=== PATIENT | female | born 1990 | race Caucasian/White ===

== ENCOUNTER 2017-10-19 22:44 | Observation (INO) | payer OTHER ==
[2017-10-19 23:00] VITALS: BMI 19.8
[2017-10-19] MEDS ORDERED: ZOFRAN 4 MG/2 ML IVP STA (23:10)
[2017-10-19] MEDS ORDERED: SODIUM CHLORIDE 1,000 ML IV STA (23:10)
--- NOTE | 2017-10-20 00:28 | CT ---
EXAM: CT abdomen and pelvis without contrast. HISTORY: Vomiting. PROCEDURE: Contiguous axial CT images of the abdomen and pelvis without contrast with coronal and sa gittal reformats. FINDINGS: The liver, gallbladder, pancreas, spleen, adrenal glands and kidneys are normal in appearan ce. The abdominal aorta is normal in appearance. The visualized loops of bowel and appendix are edgardo l in appearance. No free fluid or free air in the abdomen or pelvis. The bladder is decompressed whi ch limits the evaluation. The uterus is unremarkable. The bones and soft tissues are unremarkable. Impression: Negative CT of the abdomen and pelvis.
[2017-10-20] MEDS ORDERED: PHENERGAN 25 MG/ML VIAL 25 MG in SODIUM CHLORIDE 50 ML IV STA (00:52)
[2017-10-20] MEDS ORDERED: SODIUM CHLORIDE 1,000 ML IV STA (00:52)
[2017-10-20] MEDS ORDERED: PHENERGAN 25 MG/ML VIAL ONE (00:55)
[2017-10-20] MEDS ORDERED: ZOFRAN 4 MG/2 ML IVP STA (03:25)
--- NOTE | 2017-10-20 05:28 | ED.PDOC ---
General ED Provider: Dr. ASHVIN AREVALO-ER Chief Complaint: Nausea/Vomiting Stated Complaint: im sick Time Seen by Physician: 22:50 Mode of Arrival: Wheelchair Information Source: Patient, Family Exam Limitations: No limitations Nursing and Triage Documentation Reviewed and Agree: Yes Reviewed sepsis parameters & appropriate labs ordered?: Yes System Inflammatory Response Syndrome: Not Applicable Sepsis Protocol: For patient's 13 years and over: Temp is 96.8 and below OR 101 and greater Pulse >90 BPM Resp >20/minute Acutely Altered Mental Status Are patient's symptoms suggestive of a new infection, such as: -Pneumonia -Skin, Soft Tissue -Endocarditis -UTI -Bone, Joint Infection -Implantable Device -Acute Abdominal Infection -Wound Infection -Meningitis -Blood Stream Catheter Infection -Unknown GI Complaint Exam - Vomiting/Diarrhea Complaint/Exam Onset/Duration: a few hours Symptoms Are: Still present Initial Severity: Mild Current Severity: Mild Character of Vomiting: Reports: Non-bilious Aggravating: Reports: Food Alleviating: Reports: None Associated Signs and Symptoms: Reports: Cramping Menses: Regular Recent Positive Test: No Non-GI Risk Factors: Reports: None Surgical Obstruction Risk Factors: Reports: None Abdominal Findings: Present: None Kussmaul Respirations Present: No Differential Diagnoses: Cholecystitis, Cholelithiasis, Dehydration, Viral Gastroenteritis, Bacterial Gastroenteritis, UTI Review of Systems - Review Of Systems Constitutional: Reports: No symptoms Eyes: Reports: No symptoms Ears, Nose, Mouth, Throat: Reports: No symptoms Respiratory: Reports: No symptoms Cardiac: Reports: No symptoms GI: Reports: Abdominal pain, Nausea, Vomiting : Reports: No symptoms Musculoskeletal: Reports: No symptoms Skin: Reports: No symptoms Neurological: Reports: No symptoms Endocrine: Reports: No symptoms Hematologic/Lymphatic: Reports: No symptoms All Other Systems: Reviewed and Negative Past Medical History - Past Medical History Previously Healthy: Yes Endocrine: Reports: Unknown Cardiovascular: Reports: Unknown Respiratory: Reports: Unknown Hematological: Reports: Unknown Gastrointestinal: Reports: Unknown Genitourinary: Reports: Unknown Neuro/Psych: Reports: Unknown Musculoskeletal: Reports: Unknown Cancer: Reports: Unknown Last Menstrual Period: 4 WEEKS AGO - Surgical History General Surgical History: Reports: Unknown - Family History Family History: Reports: Unknown - Social History Smoking Status: Never smoker Hx Substance Use: No Alcohol Screening: None - Immunizations Tetanus Shot up to Date: No Physical Exam - Physical Exam Appearance: Well-appearing, No pain distress, Well-nourished Eyes: DAVIDSON, EOMI, Conjunctiva clear ENT: Ears normal Neck: Supple Respiratory: Airway patent, Breath sounds clear, Breath sounds equal, Respirations nonlabored Cardiovascular: RRR, Pulses normal, No rub, No murmur GI/: Soft, Nontender, No masses, Bowel sounds normal, No Organomegaly Musculoskeletal: Normal strength, ROM intact, No edema, No calf tenderness Skin: Warm, Dry, Normal color Neurological: Sensation intact, Motor intact, Reflexes intact, Cranial nerves intact, Alert, Oriented Psychiatric: Affect appropriate, Mood appropriate Interpretation - Radiology Interpretation Radiology Interpretation By: Radiologist Radiology Results: Negative Exam Interpreted: CT Scan Re-Evaluation - Re-Evaluation Time of Re-Evaluation: 05:57 Status: Unchanged Vital Signs Stable: Yes Pain Level: 2 Appearance: NAD Lungs: Clear Skin: Warm and Dry Neuro: Alert and Oriented X3 CV: RRR Physician Notification - Case Discussed Physician Notified: dr england Time of Notification: 05:58 Critical Care Note - Critical Care Note Total Time (mins): 0 Course - Course Hematology/Chemistry: 10/19/17 23:20 10/19/17 23:20 Orders, Labs, Meds: Lab Review 10/19/17 10/19/17 10/19/17 23:20 23:20 23:20 WBC 18.29 H RBC 4.76 Hgb 14.3 Hct 41.2 MCV 86.6 MCH 30.0 MCHC 34.7 RDW Coeff of Isaias 12.2 Plt Count 300 Immature Gran % (Auto) 0.4 Neut % (Auto) 86.7 Lymph % (Auto) 8.[address] [place] % (Auto) 3.7 Eos % (Auto) 0.4 Baso % (Auto) 0.3 Immature Gran # (Auto) 0.1 Neut # (Auto) 15.9 H Lymph # (Auto) 1.6 [facility] # (Auto) 0.7 Eos # (Auto) 0.1 Baso # (Auto) 0.1 Sodium 138 Potassium 3.8 Chloride 106 Carbon Dioxide 19 L Anion Gap 16.8 BUN 17 Creatinine 0.73 Estimated GFR (MDRD) 96.00 BUN/Creatinine Ratio 23.28 Glucose 138 H Calcium 9.1 Total Bilirubin 0.8 AST 11 L ALT 10 L Alkaline Phosphatase 52 Total Protein 7.0 Albumin 3.7 Globulin 3.3 Albumin/Globulin Ratio 1.12 Amylase 55 Lipase 52 Urine Color Urine Clarity Urine pH Ur Specific [place] Urine Protein Urine Glucose (UA) Urine Ketones Urine Blood Urine Nitrite Urine Bilirubin Urine Urobilinogen Ur Leukocyte Esterase Urine Microscopic RBC Urine Microscopic WBC Ur Squamous Epith Cells Urine Bacteria Urine Mucus Urine Test Influ A Molecular Assay Negative by naat Influ B Molecular Assay Negative by naat 10/19/17 10/19/17 23:38 23:38 WBC RBC Hgb Hct MCV MCH MCHC RDW Coeff of Isaias Plt Count Immature Gran % (Auto) Neut % (Auto) Lymph % (Auto) [facility] % (Auto) Eos % (Auto) Baso % (Auto) Immature Gran # (Auto) Neut # (Auto) Lymph # (Auto) [place] # (Auto) Eos # (Auto) Baso # (Auto) Sodium Potassium Chloride Carbon Dioxide Anion Gap BUN Creatinine Estimated GFR (MDRD) BUN/Creatinine Ratio Glucose Calcium Total Bilirubin AST ALT Alkaline Phosphatase Total Protein Albumin Globulin Albumin/Globulin Ratio Amylase Lipase Urine Color Yellow Urine Clarity Clear Urine pH 5.5 Ur Specific [place] >=1.030 Urine Protein Negative Urine Glucose (UA) Negative Urine Ketones Negative Urine Blood 1+ Urine Nitrite Negative Urine Bilirubin Negative Urine Urobilinogen 0.2 Ur Leukocyte Esterase Negative Urine Microscopic RBC 2-5 Urine Microscopic WBC 0-2 Ur Squamous Epith Cells 2-5 Urine Bacteria 1+ Urine Mucus 1+ Urine Test Negative Influ A Molecular Assay Influ B Molecular Assay Orders Category Date Time Status IV [ED IV/MEDIPORT/POWERPORT] .ONCE EMERGENCY 10/19/17 23:10 Active AMYLASE Stat LAB 10/19/17 23:20 Completed CBC W/ AUTO DIFF Stat LAB 10/19/17 23:20 Completed COMPREHENSIVE METABOLIC PANEL Stat LAB 10/19/17 23:20 Completed FLU A/B MOLECULAR Stat LAB 10/19/17 23:20 Completed LIPASE Stat LAB 10/19/17 23:20 Completed MOLECULAR GROUP A STREP Stat LAB 10/19/17 23:20 Completed URINALYSIS C & S IF INDICATED Stat LAB 10/19/17 23:38 Completed URINE CULTURE Stat LAB 10/19/17 23:38 Received URINE Stat LAB 10/19/17 23:38 Completed 0.9 % Sodium Chloride [Saline Flush] MEDS 10/19/17 23:10 Ordered 1 syr IVF PRN PRN Ondansetron HCl/Pf [Zofran 4 mg/2 ml] MEDS 10/19/17 23:10 Discontinued 4 mg IVP ONCE STA Ondansetron HCl/Pf [Zofran 4 mg/2 ml] MEDS 10/20/17 03:25 Discontinued 4 mg IVP ONCE STA Promethazine HCl [Phenergan 25 mg/ml Vial] MEDS 10/20/17 00:55 Discontinued 25 mg .ROUTE .STK-MED ONE Promethazine HCl [Phenergan 25 mg/ml Vial] 25 mg MEDS 10/20/17 00:52 Discontinued 0.9 % Sodium Chloride [Sodium Chloride] 50 ml IV ONCE Sodium Chloride 0.9% [Sodium Chloride] 1,000 ml MEDS 10/20/17 00:52 Discontinued IV 250 mls/hr Sodium Chloride 0.9% [Sodium Chloride] 1,000 ml MEDS 10/19/17 23:[address] ABDOMEN/PELVIS WO CONTRAST Stat RADS 10/19/17 23:10 Completed Medications Generic Name Dose Route Start Last Admin Trade Name Freq PRN Reason Stop Dose Admin Sodium Chloride 1 syr 10/19/17 23:10 10/20/17 03:29 Saline Flush IVF 1 syr PRN PRN Administration To flush IV Discontinued Medications Generic Name Dose Route Start Last Admin Trade Name Freq PRN Reason Stop Dose Admin Sodium Chloride 1,000 mls @ 1,000 mls/hr 10/19/17 23:10 10/19/17 23:30 Sodium Chloride IV 10/20/17 00:09 1,000 mls/hr BOLUS STA Administration Promethazine HCl 25 mg/ Sodium 51 mls @ 75 mls/hr 10/20/17 00:52 10/20/17 01: 02 Chloride IV 10/20/17 01:32 75 mls/hr ONCE STA Administration Sodium Chloride 1,000 mls @ 250 mls/hr 10/20/17 00:52 10/20/17 00:55 Sodium Chloride IV 10/20/17 04:51 250 mls/hr .Q4H STA Administration Ondansetron HCl 4 mg 10/19/17 23:10 10/19/17 23:22 Zofran 4 Mg/2 Ml IVP 10/19/17 23:11 4 mg ONCE STA Administration Ondansetron HCl 4 mg 10/20/17 03:25 10/20/17 03:29 Zofran 4 Mg/2 Ml IVP 10/20/17 03:26 4 mg ONCE STA Administration Vital Signs: Temp Pulse Resp BP Pulse Ox 10/19/17 22:46 99.4 F 80 20 128/83 98 Departure - Departure Time of Disposition: 05:58 Disposition: PLACED OBSERVATION Discharge Problem: Nausea, Vomiting Instructions: Acute Nausea and Vomiting (ED) Condition: Good Pt referred to PMD for follow-up: No IPMP verified?: No Allergies/Adverse Reactions: Allergies No Known Drug Allergies Adverse Reaction (Verified 10/19/17 22:57) Home Medications: Ambulatory Orders 1 [No Reported Medications] 10/19/17 Disposition Discussed With: Patient, Family
[2017-10-20] MEDS ORDERED: ZOFRAN 4 MG/2 ML ONE (05:59)
[2017-10-20] MEDS ORDERED: D5%-NS-KCL 20 MEQ/L IV SOL 1,000 ML IV SCH (06:00)
[2017-10-20] MEDS ORDERED: ZOFRAN 4 MG/2 ML IVP PRN (06:01)
[2017-10-20] MEDS ORDERED: PHENERGAN 25 MG/ML VIAL 25 MG in SODIUM CHLORIDE 50 ML IV PRN (06:02)
--- NOTE | 2017-10-20 07:54 | PCM ---
- Chief Complaint Chief Complaint: Nausea and Vomiting - History of Present Illness History of Present Illness: Typically healthy 27 yo WF went to ER last night around 9-9:30 with 6 bouts of emesis and abdominal cramping. Diarrhea x 1. I was called this am around 6 and patient seen at 7:30. She was resting comfortably in hospital bed able to fully converse, aaox3. She went to local [employer] restaurant yesterday and ate Chicken, daniel chips and rice for lunch. No abnl food noted, no abnl taste, didn't look weird. Nobody else ate her food. No other sick contacts, no recent sick contacts. Works as chief accountant, , sexually active with , not on any meds, no control, not preventing /not trying for . No obvious source of infection but food is on the differential. LMP 09/23/17, test negative in ER. She has no major medical problems. Within an hour of meal yesterday she felt weird, nauseated and just not right. After work yesterday asked what she wanted for dinner and she felt worse. Around 7-8 pm symptoms started and worsened and she started to have emesis. NO previous history of GI issues. She had diarrhea x 1, watery. NO recent abx. Came in to ER with persistent N/V 6 bouts emesis quickly and then diarrhea x 1. Abdomen is not painful, no body aches, no fever, no other symptoms. In ER labs were collected. As noted negative, urine negative, amylase and lipase negative. CMP was normal. CBC showed elevated WBC at 18 but this may have been from demargination from the emesis and may be situational. The patient case was discussed with Dr. Brown, I reviewed his note as well. We talked about ddx to include food borne illness, viral/bacterial gastroenteritis , UTI, dehydration and GB diseases cholelithiasis, cholecystitis and biliary dyskinesia. No previous issues, healthy female no underlying medical problesm. ROS negative except for N/V moderate abd cramping before emesis and diarrhea. LMP up to date 09/23/17. NO vaginal discharge, no bleeding. CT abd/pelvis w/o contrast negative. Flu was negative. Creatinine was fine/normal. Electrolytes are normal/fine. No blood in diarrhea. She is currently resting comfortably. She noted this am that she feels better now than she has all night. She has no pain now. Nausea is mild. Has phenergan and zofran IV q 4 hours pRN. Discussed we will have her start with ice chips and advance to liquids. Reassess this afternoon to see how she is doing and consider home when feeling better. Last zofran 3 am. Afebrile, no other medications have been given. Pain currently 0/10. Nausea is mild and controlled. She is tired. Laboratory Last Values WBC 18.29 K/ul (4.6-10.2) H 10/19/17 23:20 RBC 4.76 10^6/ul (4.20-5.40) 10/19/17 23:20 Hgb 14.3 g/dl (12.0-16.0) 10/19/17 23:20 Hct 41.2 % (37.0-47.0) 10/19/17 23:20 MCV 86.6 fl (81.0-99.0) 10/19/17 23:20 MCH 30.0 pg (27.0-31.0) 10/19/17 23:20 MCHC 34.7 (31.8-35.4) 10/19/17 23:20 RDW Coeff of Isaias 12.2 % (11.6-14.8) 10/19/17 23:20 Plt Count 300 10^3/uL (140-440) 10/19/17 23:20 Immature Gran % (Auto) 0.4 % (0.0-5.0) 10/19/17 23:20 Neut % (Auto) 86.7 10/19/17 23:20 Lymph % (Auto) 8.5 (10.0-50.0) L 10/19/17 23:20 Shackelford % (Auto) 3.7 (0-10) 10/19/17 23:20 Eos % (Auto) 0.4 % (0.0-7.0) 10/19/17 23:20 Baso % (Auto) 0.3 % (0.0-3.0) 10/19/17 23:20 Immature Gran # (Auto) 0.1 (0.0-1.0) 10/19/17 23:20 Neut # (Auto) 15.9 K/ul (2.0-6.9) H 10/19/17 23:20 Lymph # (Auto) 1.6 K/uL (0.60-3.4) 10/19/17 23:20 Shackelford # (Auto) 0.7 K/uL (0.4-2.0) 10/19/17 23:20 Eos # (Auto) 0.1 K/ul (0.0-0.7) 10/19/17 23:20 Baso # (Auto) 0.1 K/uL (0-0.2) 10/19/17 23:20 Sodium 138 mmol/L (136-145) 10/19/17 23:20 Potassium 3.8 mmol/L (3.5-5.10) 10/19/17 23:20 Chloride 106 mmol/L (98-107) 10/19/17 23:20 Carbon Dioxide 19 mmol/L (21-32) L 10/19/17 23:20 Anion Gap 16.8 10/19/17 23:20 BUN 17 mg/dL (7-18) 10/19/17 23:20 Creatinine 0.73 mg/dL (0.60-1.30) 10/19/17 23:20 Estimated GFR (MDRD) 96.00 mL/min 10/19/17 23:20 BUN/Creatinine Ratio 23.28 10/19/17 23:20 Glucose 138 mg/dL (70-110) H 10/19/17 23:20 Calcium 9.1 mg/dL (8.2-10.2) 10/19/17 23:20 Total Bilirubin 0.8 mg/dL (0.00-1.20) 10/19/17 23:20 AST 11 U/L (15-37) L 10/19/17 23:20 ALT 10 U/L (12-78) L 10/19/17 23:20 Alkaline Phosphatase 52 U/L (42-98) 10/19/17 23:20 Total Protein 7.0 g/dL (6.4-8.2) 10/19/17 23:20 Albumin 3.7 g/dL (3.4-5.0) 10/19/17 23:20 Globulin 3.3 10/19/17 23:20 Albumin/Globulin Ratio 1.12 10/19/17 23:20 Amylase 55 U/L (25-115) 10/19/17 23:20 Lipase 52 U/L (8-78) 10/19/17 23:20 Urine Color Yellow (YELLOW) 10/19/17 23:38 Urine Clarity Clear (CLEAR) 10/19/17 23:38 Urine pH 5.5 (5-9) 10/19/17 23:38 Ur Specific [place] >=1.030 (1.005-1.030) 10/19/17 23:38 Urine Protein Negative (NEGATIVE) 10/19/17 23:38 Urine Glucose (UA) Negative (NEGATIVE) 10/19/17 23:38 Urine Ketones Negative (NEGATIVE) 10/19/17 23:38 Urine Blood 1+ (NEGATIVE) 10/19/17: Urine Nitrite Negative (NEGATIVE) 10/19/17 23: Urine Bilirubin Negative (NEGATIVE) 10/19/17:38 Urine Urobilinogen 0.2 (0.2) 10/19/17 23:38 Ur Leukocyte Esterase Negative (NEGATIVE) 10/19/17:38 Urine Microscopic RBC 2-5 (0-2) 10/19/17 23:38 Urine Microscopic WBC 0-2 (0-2) 10/19/17 23:38 Ur Squamous Epith Cells 2-5 (0-5) 10/19/17 23:38 Urine Bacteria 1+ (NOT PRESENT) 10/19/17 23:38 Urine Mucus 1+ (NOT PRESENT) 10/19/17 23:38 Urine Test Negative (NEGATIVE) 10/19/17 23:38 Influ A Molecular Assay Negative by naat (NEGATIVE) 10/19/17 23:20 Influ B Molecular Assay Negative by naat (NEGATIVE) 10/19/17 23:20 - Review of Systems Constitutional: sweats (during bouts of emesis), fatigue, loss of appetite. No : fever, chills, weakness Eyes: No: blurred vision, double-vision, discharge, itching, pain, redness, photophobia Ears: No: pain, bleeding, drainage, ringing, hearing loss, other Nose: No: bleeding, congestion, discharge, other Throat: No: pain, swelling, voice change, other Mouth: No: bleeding, pain, swelling, other Respiratory: No: cough, shortness of air, wheeze, hemoptysis, pain with breathing, other Cardiovascular: No: chest pain, left arm pain, diaphoresis, PND, orthopnea, edema, palpitations, syncope, other Gastrointestinal: abdominal pain, nausea, vomiting, diarrhea. No: other, melena , hematemesis, hematochezia, dysphagia, constipation Genitourinary: No: dysuria, hematuria, frequency, incontinence, flank pain, vaginal discharge, abnormal bleeding, pelvic pain, other Neurological: headache (only during emesis. ). No: dizziness, seizure, numbness , weakness, speech difficulty, problems with walking, tremor, fainting, other Musculoskeletal: No: pain, swelling in joints, other Skin: No: rash, pruritus, lacerations, wounds, bruising, other Immunology: No: hives, itching, frequent infections, difficulty healing, other Hematology: No: easy bruising, easy bleeding, swollen glands, other Endocrine: No: weight changes, cold intolerance, heat intolerance, excessive thirst, excessive hunger, polyuria, other Psychiatric: No: depression, anxiety, sleeplessness, hopelessness, suicidal, hallucinations, other Habits: No: tobacco use, substance use, alcohol use, other - Past Medical History Past Medical History: OM as youth, s/p tubes. Otherwise healthy female. No meds. No known problems. - Past Surgical History Past Surgical History: PE tubes as youth. No other surgeries. - Allergies Allergies/Adverse Reactions: Allergies Allergy/AdvReac Type Severity Reaction Status Date / Time No Known Drug Allergies AdvReac Verified 10/19/17 22:57 - Medications Medications: Medications Generic Name Dose Route Start Last Admin Trade Name Freq PRN Reason Stop Dose Admin Potassium Chloride/Dextrose/Sod Cl 1,000 mls @ 75 mls/hr 10/20/17 06:00 D5%-Ns-Kcl 20 Meq/L Iv Edwina IV .[id number] SENIA Promethazine HCl 25 mg/ Sodium 51 mls @ 75 mls/hr 10/20/17 06:02 Chloride IV Q4HR PRN Nausea / Vomiting Ondansetron HCl 4 mg 10/20/17 06:01 Zofran 4 Mg/2 Ml IVP Q4HR PRN Nausea / Vomiting Sodium Chloride 1 syr 10/19/17 23:10 10/20/17 06:00 Saline Flush IVF 1 syr PRN PRN Administration To flush IV - Family History Past Family History: Mother/father living, healthy. Brother x 1 living health. . No family history of Breast cancer, no family history of cervical/ovarian /uterine cancers. NO family history of colon cancer. No sick contacts. - Social History Past Social History: Works in financial market. NO tobacco, minimal ETOH. Normal menstrual cycles. . - Vital Signs Temperature: 97.6 F Pulse Rate: 80 Respiratory Rate: 16 Blood Pressure: 128/83 O2 Sat by Pulse Oximetry: 99 - Body Composition Height: 5 ft 8 in Weight: 130 lb 11.746 oz Body Mass Index (BMI): 19.8 - Physical Examination HEENT: Constitutional: Appearance-No acute distress, Consistent with stated age. Lying in hospital bed, comfortable. Nurse Zina Present during entirety of history/examination. Orientation- Oriented x 3, alert Posture-Supine hospital bed. Build and Nutrition-Well developed and well nourished. BMI normal zone. General- Patient is pleasant and cooperative with the interview and exam. Integumentary: General-No rashes, ulcers or lesions. Palpation- Normal skin moisture/turgor. Skin is warm to touch, appropriate. Capillary refill is normal bilateral Upper and lower extremity. Head/Neck: Head- normocephalic and atraumatic. Neck- without visible/palpable lumps or pulsations. Palpation- No bony tenderness about head/neck along frontal, occipital, temporal, parietal, mastoid, jawline, zygoma, orbit or any other location.~ NO temporal artery tenderness. No TMJ tenderness. Neck Supple. Thyroid-No thyromegaly, no nodules Eye: Bilaterally PERRLA, EOMI. No discharge. Upper and lower eyelids are normal. Sclera/conjunctiva normal without discharge. Cornea is normal and clear. Lens is normal. Eyeball appears normal. No ciliary flushing, no conjunctival injection. ENMT: Pinna- normal without tenderness or erythema. External auditory canal Left- normal without erythema or discharge, no excessive cerumen. External auditory canal Right-normal without erythema or discharge, no excessive cerumen. TM left- Soriano/pearly, normal light reflex and anatomy scarring posterior inferior border. TM Right- Soriano/pearly, normal light reflex and anatomy scarring posterior inferior border. Hearing Assessment-normal to conversational speech. Nose and sinus- No sinus tenderness along frontal/ maxillary region. External appearance normal and midline. Nares- bilateral quiet airflow, no discharge. Nasal mucosa- No bleeding noted and no ulcerations observed. [place], moist. Turbinates non boggy. Lips- normal color, moist without cracks/lesions Oral Cavity/Palate- hard/soft palate intact without lesions, oral mucosa pink and moist. Dentition assessed and discussed appropriate oral care. Tongue normal midline. Oropharynx- no pharyngeal erythema, Uvula midline. No post nasal drip. No exudate. Salivary glands- Non tender to palpation CHEST/LUNG: Inspection- symmetric chest wall no pectus deformity. Normal effort , no distress, no use of accessory muscles. Palpation- nontender sternum, ribline. No abnormal pulsations. Auscultation- Breath sounds normal throughout all lung kohler. Normal tracheal sounds, Normal bronchial sounds overlying sternum, Bronchovessicular sounds normal between scapulae posteriorly, Normal vessicular breath sounds heard throughout periphery. Lungs are clear today. Adventitious sounds- No wheezes, rales, rhonchi. CARDIOVASCULAR: Carotid artery- normal, no bruits or abnormal pulsations. Jugular vein- no pulsations. Palpation/Percussion- Normal PMI, no palpable thrill Auscultation- Regular rate and rhythm. No murmur noted in sitting, supine positions. Extremities- no digital clubbing, cyanosis, edema, increased warmth. ABDOMEN: Inspection- normal and no visible pulsations. Normal contour. Auscultation- Bowel sounds hyperactive Palpation/Percussion- soft, mildly tender epigastric, no rebound tenderness, no rigidity (guarding), no jar tenderness, no masses, Power negative, No tenderness at Mcburney point. Rovsing negative. Liver-no hepatomegaly, Spleen no splenomegaly, Hernias- none. Rectal not examined. Peripheral Vascular: Upper extremity Left- Normal temperature with pink nailbeds and no ulcerations. Upper extremity Right- Normal temperature with pink nailbeds and no ulcerations. Lower extremity- Normal temperature with pink nailbeds and no ulcerations. DP pulses 2+ bilaterally. Pedal hair intact. Normal capillary refill. Edema- No edema. Musculoskeletal: Generalized-No generalized swelling or edema of extremities, no digital clubbing or cyanosis, neurovascularly intact all four extremities. Upper extremity- Symmetrical posture. No visible deformity. Normal sensation along medial and lateral upper extremity proximally and distally.~ NO tenderness overlying shoulder, lateral/medial epicondyle. Headend Technician 5/5 and strength 5/5 bilateral UE.~ Elbow palpated, no tenderness overlying olecranon.~ Normal supination, pronation to active/passive ROM and to resisted rotation. Bicep insertion/tricep insertion appear normal without obvious pathology. Rotator cuff evaluated and intact. Normal wrist ROM bilaterally. Normal hand movement, intrinsic muscles of hands normal. No tenderness to palpation of hands/wrists/ elbows. Lower extremity- Hip: Not tender to palpation, no pain, no swelling, edema or erythema of surrounding tissue, normal strength and tone. Normal appearing hip ROM bilaterally without pain. Knee: Knee ROM normal. No tenderness overlying trochanters, no tenderness about patella, quad tendon, patellar tendon. No tenderness at tibial tuberosity. Ankle: normal ROM not tender to palpation along medial/lateral malleolus. Foot: Normal movement of toes, no tenderness bilateral feet/toes. Normal foot type. Spine/Ribs- No deformities, masses or tenderness, no known fractures, normal strength, Normal ROM. Normal stability No tenderness along C/T/L spine. Normal appearing ROM about spine. Neurological: General- Moves all 4 extremities symmetrically. Symmetrical face and body posture. Cranial nerves- individually evaluated II-XII and intact. PERRLA, Normal EOMI, visual/special senses appear intact, Face is symmetrical and normal sensation/movement, normal tongue, normal strength/posture of neck musculature. Reflexes- intact with DTR 2+ patellar, Achilles, bicep, brachial, Strength- 5/5 bilateral UE and LE. Soft touch- intact bilateral UE and LE. Temperature sensation- intact bilateral UE and LE. Cerebellar testing-Rapid alternating movements intact. Heel kaiser intact. Able to walk normal gait, normal heel toe walking. Balance- Romberg intact. Normal Walking, heel toe walking, tip toe and heel walking normal. Neuropsych: Oriented- Person, place, time. (AAOx3), Mood/affect- normal and congruent. Able to articulate well. Speech-Normal speech, normal rate, normal tone, normal use of language, volume and coherence. Thought content- normal with ability to perform basic computations and apply abstract thought/reason. Associations- intact, no SI/HI, no hallucinations, delusions, obsessions. Judgment/insight- Appropriate. Memory-Recall intact, remote and recent memory intact. Knowledge- Age appropriate fund of knowledge, concentration and attention span normal. Lymphatic: Head/Neck- normal size and non tender to palpation. Axillary- normal size and non tender to palpation. Femoral and Inguinal- normal size and non tender to palpation. IV Right AC. - Lab/Tests/Diagnostic Imaging Lab/Tests/Diagnostic Imaging: CT Abd pelvis w/o: Negative. Labs as listed above. - Assessment (1) Nausea Status: Acute Code(s): R11.0 - NAUSEA SNOMED Code(s): 862359258 (2) Vomiting Status: Acute Code(s): R11.10 - VOMITING, UNSPECIFIED SNOMED Code(s): 314869625 (3) Diarrhea Status: Acute Code(s): R19.7 - DIARRHEA, UNSPECIFIED SNOMED Code(s): 80809122 (4) Hyperglycemia Status: Acute Code(s): R73.9 - HYPERGLYCEMIA, UNSPECIFIED SNOMED Code(s): 83910486 (5) Leukocytosis Status: Acute Code(s): D72.829 - ELEVATED WHITE BLOOD CELL COUNT, UNSPECIFIED SNOMED Code(s): 576871673 - Plan Plan: Nausea and Vomiting: Ddx discussed with patient today includes viral vs bacterial Gastroenteritis, food borne illness at this time. UTI is less likely with negative UA, urine was negative. Pancreatitis is less likely with normal chan/lipa. Hepatitis is less likely with normal AST/ALT. She does not appear to be majorly dehydrated, normal vitals, normal electrolytes. Persistent nausea and vomiting with 1 bout of diarrhea. C. Diff is on ddx with the elevated WBC and diarrhea. However she has not yet had 3 unformed stools in 24 hours. The patient is resting comfortably, antiemetics on board and working. Last dose 3 am. For now I would like to observe her here and see how she does with antiemetics. IF doing well by this pm, we may send home with instructions on diet. While in hospital we will have her clear liquid, advance as tolerated. She has no reason to be NPO. Tylenol/motrin PRN. She has no pain , no other pain meds will be needed. She is a very healthy 27 yr old female. No bloody diarrhea suggest less likely for (yersenia, campylobacter, salmonella , shigella, e. coli). I would like to check stool for PCR. We will complete this once she has a stool. - Phenergan/zofran PRN. - D5 1/2 NS 50ml/hour + 20meq KCL - Clear liquids, start with ice chips and advance as tolerated. - monitor for changes. Diarrhea: As noted suspect gastoenteritis but cannot r/o B. Cereus with rice or salmonella/shigella/E. Coli from food. Less likely hepatitis for reasons noted above. We will check Stool PCR to see cause of symptoms. Suspect gastroenteritis and when tolerating PO can be at home. She agreed with this plan. [place] [place]. Hyperglycemia: Fasting as no food/drink after noon. Glucose elevated ?stress response but >126. We will check A1C. -A1C ordered Leukocytosis: Suspect demargination from emesis. Infection is considered on ddx as well. Monitor. Would consider repeat in 48-72 hours. Does not meet SIRS criteria Pain: Toradol IV ordered. Afebrile, tylenol held for now. Admit Status: Observation. Activity: ad alice Diet: clear liquids start w/ ice and advance to liquids. Advance as tolerated. DVT Prophy: up ad alice.
[2017-10-20] MEDS ORDERED: TORADOL IVP PRN (08:16)
[2017-10-20 15:27] VITALS: BP 102/72; TEMP 99.9
--- NOTE | 2017-10-20 15:52 | PCM.DC ---
Final Diagnosis: All Active Problems Diarrhea (Acute) Hyperglycemia (Acute) Leukocytosis (Acute) Nausea (Acute) Vomiting (Acute) (1) Nausea Status: Resolved Code(s): R11.0 - NAUSEA SNOMED Code(s): 689526429 (2) Vomiting Status: Resolved Code(s): R11.10 - VOMITING, UNSPECIFIED SNOMED Code(s): 372968547 (3) Diarrhea Status: Acute Code(s): R19.7 - DIARRHEA, UNSPECIFIED SNOMED Code(s): 54483089 (4) Hyperglycemia Status: Acute Code(s): R73.9 - HYPERGLYCEMIA, UNSPECIFIED SNOMED Code(s): 48923769 (5) Leukocytosis Status: Acute Code(s): D72.829 - ELEVATED WHITE BLOOD CELL COUNT, UNSPECIFIED SNOMED Code(s): 265695410 Reason for Hospitalization: Intractable nausea and vomiting and diarrhea. Concern for food born illness. Prognosis at Discharge: Good. Nausea and emesis have resolved. None since admitted to observation. Fluid hydration completed, diarrhea has started as nausea and emesis have been controlled with medications. Condition at Discharge: Improved, good. Medications at Discharge: Ambulatory Orders Medication Instructions Recorded 1 [No Reported Medications] 10/19/17 Ambulatory Orders Medication Instructions Recorded Ondansetron [Zofran Odt] 4 mg PO Q8H 10 Days #20 tab.rapdis 10/20/17 Promethazine HCl [Phenergan Supp] 12.5 mg RC Q6H PRN 10 Days #5 10/20/17 supp.rect Promethazine HCl [Phenergan Tab] 25 mg PO Q6H PRN 10 Days #20 tablet 10/20/17 Lab/Diagnostics: Laboratory Last Values WBC 18.29 K/ul (4.6-10.2) H 10/19/17 23:20 RBC 4.76 10^6/ul (4.20-5.40) 10/19/17 23:20 Hgb 14.3 g/dl (12.0-16.0) 10/19/17 23:20 Hct 41.2 % (37.0-47.0) 10/19/17 23:20 MCV 86.6 fl (81.0-99.0) 10/19/17 23:20 MCH 30.0 pg (27.0-31.0) 10/19/17 23:20 MCHC 34.7 (31.8-35.4) 10/19/17 23:20 RDW Coeff of Isaias 12.2 % (11.6-14.8) 10/19/17 23:20 Plt Count 300 10^3/uL (140-440) 10/19/17 23:20 Immature Gran % (Auto) 0.4 % (0.0-5.0) 10/19/17 23:20 Neut % (Auto) 86.7 10/19/17 23:20 Lymph % (Auto) 8.5 (10.0-50.0) L 10/19/17 23:20 Parker % (Auto) 3.7 (0-10) 10/19/17 23:20 Eos % (Auto) 0.4 % (0.0-7.0) 10/19/17 23:20 Baso % (Auto) 0.3 % (0.0-3.0) 10/19/17 23:20 Immature Gran # (Auto) 0.1 (0.0-1.0) 10/19/17 23:20 Neut # (Auto) 15.9 K/ul (2.0-6.9) H 10/19/17 23:20 Lymph # (Auto) 1.6 K/uL (0.60-3.4) 10/19/17 23:20 Parker # (Auto) 0.7 K/uL (0.4-2.0) 10/19/17 23:20 Eos # (Auto) 0.1 K/ul (0.0-0.7) 10/19/17 23:20 Baso # (Auto) 0.1 K/uL (0-0.2) 10/19/17 23:20 Sodium 138 mmol/L (136-145) 10/19/17 23:20 Potassium 3.8 mmol/L (3.5-5.10) 10/19/17 23:20 Chloride 106 mmol/L (98-107) 10/19/17 23:20 Carbon Dioxide 19 mmol/L (21-32) L 10/19/17 23:20 Anion Gap 16.8 10/19/17 23:20 BUN 17 mg/dL (7-18) 10/19/17 23:20 Creatinine 0.73 mg/dL (0.60-1.30) 10/19/17 23:20 Estimated GFR (MDRD) 96.00 mL/min 10/19/17 23:20 BUN/Creatinine Ratio 23.28 10/19/17 23:20 Glucose 138 mg/dL (70-110) H 10/19/17 23:20 Hemoglobin A1c 5.1 (4.8-6.0) 10/19/17 23:19 Calcium 9.1 mg/dL (8.2-10.2) 10/19/17 23:20 Total Bilirubin 0.8 mg/dL (0.00-1.20) 10/19/17 23:20 AST 11 U/L (15-37) L 10/19/17 23:20 ALT 10 U/L (12-78) L 10/19/17 23:20 Alkaline Phosphatase 52 U/L (42-98) 10/19/17 23:20 Total Protein 7.0 g/dL (6.4-8.2) 10/19/17 23:20 Albumin 3.7 g/dL (3.4-5.0) 10/19/17 23:20 Globulin 3.3 10/19/17 23:20 Albumin/Globulin Ratio 1.12 10/19/17 23:20 Amylase 55 U/L (25-115) 10/19/17 23:20 Lipase 52 U/L (8-78) 10/19/17 23:20 Urine Color Yellow (YELLOW) 10/19/17 23:38 Urine Clarity Clear (CLEAR) 10/19/17 23:38 Urine pH 5.5 (5-9) 10/19/17 23:38 Ur Specific [place] >=1.030 (1.005-1.030) 10/19/17 23:38 Urine Protein Negative (NEGATIVE) 10/19/17 23:38 Urine Glucose (UA) Negative (NEGATIVE) 10/19/17 23:38 Urine Ketones Negative (NEGATIVE) 10/19/17 23:38 Urine Blood 1+ (NEGATIVE) 10/19/17 23:38 Urine Nitrite Negative (NEGATIVE) 10/19/17 23:38 Urine Bilirubin Negative (NEGATIVE) 10/19/17 23:38 Urine Urobilinogen 0.2 (0.2) 04/04/18 23:38 Ur Leukocyte Esterase Negative (NEGATIVE) 10/19/17 23:38 Urine Microscopic RBC 2-5 (0-2) 10/19/17 23:38 Urine Microscopic WBC 0-2 (0-2) 10/19/17 23:38 Ur Squamous Epith Cells 2-5 (0-5) 10/19/17 23:38 Urine Bacteria 1+ (NOT PRESENT) 10/19/17 23:38 Urine Mucus 1+ (NOT PRESENT) 10/19/17 23:38 Urine Test Negative (NEGATIVE) 10/19/17 23:38 Influ A Molecular Assay Negative by naat (NEGATIVE) 10/19/17 23:20 Influ B Molecular Assay Negative by naat (NEGATIVE) 10/19/17 23:20 Miscellaneous Test Sent to [facility] 10/20/17 11:00 Pending Labs: Gastrointestinal PCR study. Urine culture. Education Provided to Patient and Family: 1. Zofran ODT q 6 hours or Phenergan q 6 hours. She was given Rx for phenergan PO and phenergan Supp. This can cause sedation. Fluid hydration. 2. Gastroenteritis. Discussed case with patient/family today and feel that most likely dx is gastroenteritis. These usually run anywhere from 1-5 days depending on severity. Biggest risk factor is dehydration. Gatoraid is best rehydration solution. Encouraged any color but red. No bloody emesis/diarrhea by history. Mild cramping, mild abdominal pain. May consider avoiding dairy as able for ~ 1 week as GE can cause temporary lactose intolerance. Discussed to consider UA today. If no better in 1 week or if worsening recommend followup with me to evaluate this further. If concerned about dehydration can follow-up with me. Risks/benefits of current and new medications discussed with the patient/family today. The patient/family are aware if there any side effects they should stop meds and call or return to clinic. Appropriate F/U discussed. All questions answered to satisfactory state of patient/family. Should symptoms fail to improve or worsen discussed to call or return to clinic or go to ER. Education handout provided on any new Rx. 3. Repeat CBC in 1 week. 4. F/U w/ PCP in 1 week. 5. Diet advance as tolerated 6. Activity as tolerated. 7. Do not drive on phenergan. 8. Note for work for today and tomorrow. Return to work tuesday. Return to ER or call/walk in to my clinic. Follow-ups: 1. PCP in 1 week. 2. Return to Er if worsening. 3. Pending Labs; Gastrointestinal PCR, Urine culture. 4. Future Labs; CBC repeat in 1 week. Order Printed 5. Off Work 10/20 and 10/21 written Rx given. Disposition: HOME SELF-CARE Hospital Course: I saw patient this am around 7 am after admission to observation earlier this am. Leukocytosis noted, mildly elevated glucose noted, persistent N/V and Diarrhea noted and she was admitted to observation. She was given IV zofran which helped markedly. I checked on her x 2 throughout the day 12 and 3. She had abdominal pain earlier this am and I did allow a toradol injection. She tolerated this well. I changed her diet this am to be able to have liquids/ clear diet and she has tolerated this well today. She has consumed liquid foods , has had Uout in toilet and has had some diarrhea (2 bouts). She has no frequency, no hesitancy, no burning. Urine did have 1+ blood and small bacteria but no s/sx of UTI. She has remained afebrile throughout stay despite high 99. Abd pain is better (controlled), N/V (controlled) per her request. She was given option of staying overnight and stopping IV fluids to see how she was doing with 24 hour stay vs going home and she chose to go home. I believe that she has a gastroenteritis that is controllable with oral/supp meds. She has not had any more PRN antiemetics since ER. Her cmp looked good, testing was negative. CT abd/pelvis w/o contrast negative. CBC with leukocytosis that was possibly demargination from emesis. Glucose was mildly elevated, A1C was normal. She has no abdominal pain as of 4pm, has not had another round of toradol. Has not had any antiemetics since ER. She has not had any emesis since being in hospital. We talked about home meds. We will give zofran ODT. She can have phenergan in PO and Supp forms. I recommended using one or the other, do not use both. Fluid hydration is most important. Discussed avoidance of dairy over next 1 week. Hospital course was uncomplicated and she has improved since being observed in the hospital. Tolerating oral liquids. Tylenol/ibuprofen can be used as needed. F/U with PCP in 1 week. We talked about possibility of C. Diff. No recent abx, no nursing stay. However , this has increased in population. We will check PCR for infectious etiologies. Monitor for blood in stool. So far watery/brown and non bloody. Day of discharge exam as seen on H+P document. No abdominal pain as of 10/20/17 4 :16 PM. Pending: Urine Culture, Gastrointestinal PCR. Plan: 1. Discharge to home. 2. Zofran ODT 4mg q 8 hours prn 3. Phenergan 25mg PO q 6-8 hours pRN or 12.5mg supp q 6-8 hours prn 4. Fluid hydration: Water/gatoraid. Avoid red colors as able 5. Await F/U on Gastrointestinal PCR panel and urine culture. Will call w/ update if needed. 6. Good Hand washing. 7. Note for work for today and tomorrow 8. F/U with PCP in 1 week. 9. Return to ER or walk in to my clinic tomorrow if needed. 10. Avoid Dairy x 1 week. 11. Would avoid imodium if able. 12. Diet: Clear liquid diet, advance as tolerated. 13. Activity: Resume normal home activities.
== END 2017-10-20 17:20 | disposition home or self-care (01) ==
LOC: ED 22:44 → MEDSURG B 10-20 06:02
PROVIDERS: ADMIT Family Medicine; ATTEND Family Medicine
DX: R11.2 Nausea with vomiting, unspecified (principal); R19.7 Diarrhea, unspecified; R10.9 Unspecified abdominal pain; R73.9 Hyperglycemia, unspecified; D72.829 Elevated white blood cell count, unspecified
CPT/HCPCS: 36415; 80053; 81001; 81025; 82150; 83036; 83690; 85025; 87086; 87502; 87651; 96361; 96365; 96375; 96376; 99234; 99284

== ENCOUNTER 2017-10-26 11:11 | Outpatient (CLI) | payer OTHER | END 2017-10-26 11:12 | disposition home or self-care (01) | LOC: FCC-LAB 11:11 | PROVIDERS: ATTEND Family Medicine | DX: Z09 Encounter for follow-up examination after completed treatment for conditions other than malignant neoplasm (principal); R19.7 Diarrhea, unspecified; D72.829 Elevated white blood cell count, unspecified; Z22.1 Carrier of other intestinal infectious diseases | CPT/HCPCS: 36415; 85007; 85025 ==